=== PATIENT | male | born 1960 | race Asian ===

== ENCOUNTER 2019-04-06 01:17 | Inpatient (IN) | payer OTHER ==
[~2019-04-06] VITALS: Ht 172.7 cm; Wt 76.2 kg
[2019-04-06 01:21] VITALS: BP 152/94
[2019-04-06] MEDS ORDERED: ASPIRIN 81 MG TAB.CHEW PO ONE (01:45)
[2019-04-06 02:05] LABS: BASOPHILS % (AUTO) 0.3 % (0.0-2.0); EOSINOPHILS # (AUTO) 0.1 K/uL (0-0.4); EOSINOPHILS % (AUTO) 0.7 % (0.0-4.0); HEMATOCRIT 43.5 % (36-52); HEMOGLOBIN 14.3 g/dL (12.0-18.0); LYMPHOCYTES # (AUTO) 1.4 K/uL (2.0-11.5); LYMPHOCYTES % (AUTO) 17.1 % (20.5-51.1); MEAN CORPUSCULAR HEMOGLOBIN 28 pg (27-31); MEAN CORPUSCULAR HGB CONC 33 g/dL (33-37); MEAN CORPUSCULAR VOLUME 84.2 fL (80-94); MONOCYTES # (AUTO) 0.6 K/uL (0.8-1.0); MONOCYTES % (AUTO) 7.3 % (1.7-9.3); NEUTROPHILS % (AUTO) 74.6 % (42.2-75.2); PLATELET COUNT (AUTO) 270 K/uL (140-450); RED BLOOD CELL COUNT(AUTO) 5.16 MIL/uL (4.20-6.10); RED CELL DISTRIBUTION WIDTH 13.9 % (11.6-13.7); WHITE BLOOD COUNT (AUTO) 8.1 K/uL (4.8-10.8)
[2019-04-06] MEDS ORDERED: NITROGLYCERIN 0.4 MG TAB SL ONE ×2 (02:15→02:17)
[2019-04-06 02:20] LABS: ANION GAP 10.7 (8-16); CARBON DIOXIDE 30.2 mmol/L (21-32); CREATININE 0.9 mg/dL (0.7-1.3); POTASSIUM 3.9 mmol/L (3.5-5.1)
[2019-04-06 02:25] LABS: ALBUMIN 3.9 g/dL (3.4-5.0); TOTAL BILIRUBIN 0.8 mg/dL (0.0-1.0)
[2019-04-06] MEDS ORDERED: hePARIN / DEXT 5% PREMIX 250 ML IV ONE (03:35)
[2019-04-06] MEDS ORDERED: HEPARIN PER PHARMACY MC STA (03:35)
[2019-04-06 04:04] LABS: PROTHROMBIN TIME 9.3 secs (10.8-13.4)
[2019-04-06] MEDS ORDERED: NACL 0.9% 1,000 ML IV SCH (04:24)
[2019-04-06] MEDS ORDERED: ONDANSETRON 4 MG/2 ML VIAL IM/IVP PRN (04:25)
[2019-04-06] MEDS ORDERED: ACETAMINOPHEN 325 MG TAB PO PRN (04:25)
[2019-04-06] MEDS ORDERED: KETOROLAC 30 MG/ML VIAL IVP PRN (04:25)
[2019-04-06] MEDS ORDERED: MORPHINE SULFATE 2 MG/ML SYR IVP PRN (04:25)
[2019-04-06] MEDS ORDERED: HYDROcodone/APAP 7.5/325 MG 1 TAB PO PRN (04:25)
[2019-04-06 05:21] LABS: APPEARANCE,URINE CLEAR (CLEAR); BILIRUBIN,URINE NEGATIVE (NEGATIVE); BLOOD, URINE NEGATIVE (NEGATIVE); COLOR,URINE YELLOW (YELLOW); LEUKOCYTE ESTERASE ,URINE NEGATIVE (NEGATIVE); NITRITE, URINE NEGATIVE (NEGATIVE); UGLUCOSE TRACE (NEGATIVE)
[2019-04-06 05:38] LABS: BARBITURATE, URINE NEG. ng/ml (NEG <=200); BENZODIAZEPINE, URINE NEG. ng/mL (NEG <=200); CANNABINOID, URINE NEG. ng/mL (NEG <=50); COCAINE, URINE NEG. ng/mL (NEG <=300); OPIATE, URINE NEG. ng/mL (NEG <=2000); PHENCYCLIDINE SCREEN,URINE NEG. ng/mL (NEG <=25)
[2019-04-06] MEDS ORDERED: DEXTROSE 50% 50 ML SYR IVP PRN (05:40)
[2019-04-06 05:50] LABS: RBC,URINE NONE SEEN /HPF (0-5); WBC,URINE 0-5 /HPF (0-5)
[2019-04-06 07:17] LABS: CHOL/HDL RATIO 2.1 (1-4.5); FREE T4 (FREE THYROXINE) 1.03 ng/dL (0.76-1.46); MAGNESIUM 1.9 mg/dL (1.8-2.4); PHOSPHORUS 4.1 mg/dL (2.5-4.9); THYROID STIMULATING HORMONE 0.88 uIU/mL (0.34-3.74)
[2019-04-06] MEDS: BLOOD GLUCOSE MONITORING 1 DEV DEV FS SCH ×4 (07:30→20:49)
[2019-04-06 08:00] VITALS: BP 140/81
[2019-04-06] MEDS ORDERED: hePARIN / DEXT 5% PREMIX 250 ML IV SCH ×2 (08:25→08:50)
[2019-04-06] MEDS ORDERED: HEPARIN PER PHARMACY MC PRN (08:25)
[2019-04-06] MEDS ORDERED: [UNRECOGNIZED DRUG - CODE] IV (08:45)
[2019-04-06] MEDS ORDERED: ASPI-1718 PO (08:45)
[2019-04-06] MEDS ORDERED: ATOR40TA PO (08:45)
[2019-04-06] MEDS ORDERED: METO50TE2 PO (08:45)
[2019-04-06] MEDS ORDERED: ATORVASTATIN 80 MG TAB PO SCH (09:00)
[2019-04-06] MEDS ORDERED: ASPIRIN 81 MG TAB.CHEW PO SCH (09:00)
[2019-04-06] MEDS: METOPROLOL 50 MG TAB PO SCH ×2 (09:39→21:00)
[2019-04-06] MEDS: metFORMIN 500 MG TAB PO SCH ×2 (09:41→17:59)
[2019-04-06 12:00] VITALS: BP 117/72
[2019-04-06] MEDS: INSULIN LISPRO SLIDING SCALE 100 UNITS/ML VIAL SUBQ PRN ×2 (12:34→18:03)
[2019-04-06 16:00] VITALS: BP 123/80
[2019-04-06] MEDS ORDERED: NITROGLYCERIN 0.4 MG TAB SL PRN (19:20)
[2019-04-06] MEDS ORDERED: NITROGLYCERIN 2% 1 GM PKT TP PRN (19:50)
[2019-04-06 20:00] VITALS: BP 94/54
[2019-04-06 21:08] VITALS: BP 103/72
== END 2019-04-06 22:10 | disposition short-term general hospital (02) | DRG 282 ==
LOC: MED 01:17 → MTU 04:24
PROVIDERS: ADMIT General Practice; ATTEND General Practice
DX: I21.4 Non-ST elevation (NSTEMI) myocardial infarction (principal); E11.65 Type 2 diabetes mellitus with hyperglycemia; E78.5 Hyperlipidemia, unspecified; I10 Essential (primary) hypertension
CPT/HCPCS: 36415; 71045; 80053; 80305; 81001; 82550; 82948; 83036; 83605; 83690; 83735; 83880; 84100; 84439; 84443; 84484; 85025; 85610; 85730; 87081; 93005; 96365; 96366; 96376; 99291; J1644; J1815; Q0092